=== PATIENT | female | born 1955 | race Two or more races ===

== ENCOUNTER 2021-07-12 10:45 | Outpatient (CLI) | payer OTHER | END 2021-07-12 10:53 | disposition home or self-care (01) | LOC: MAMO-SONO 10:45 | DX: Z12.31 Encounter for screening mammogram for malignant neoplasm of breast (principal) ==

== ENCOUNTER 2022-06-20 10:15 | Outpatient (CLI) | payer OTHER | END 2022-06-20 10:25 | disposition home or self-care (01) | LOC: TOM 10:15 | PROVIDERS: ATTEND Internal Medicine Gastroenterology | DX: R93.5 Abnormal findings on diagnostic imaging of other abdominal regions, including retroperitoneum (principal); M54.50 Low back pain, unspecified ==